=== PATIENT | male | born 1975 | race Caucasian/White ===

== ENCOUNTER 2019-09-12 18:38 | Emergency (ER) | payer OTHER, SELFPAY ==
--- NOTE | ~2019-09-12 | XR_ITS ---
EXAMINATION: XR forearm LT 2V DATE: 09/12/2019 19:06 INDICATION: Laceration of the mid left forearm from metal hardener. TECHNIQUE: AP an lateral views of the left forearm were obtained. COMPARISON: none FINDINGS: Large laceration along the volar/radial aspect of the mid to distal left forearm. There are few small radiopaque foreign bodies along the laceration. Bone alignment is normal. No fracture. Joint spaces are normal. No left elbow joint effusion. IMPRESSION: 1. A few small radiopaque foreign bodies along a deep laceration at the radial/volar aspect of the mi d to distal left forearm. No osseous abnormality. Reviewed, dictated and finalized at location A. IMPRESSION: 1. A few small radiopaque foreign bodies along a deep laceration at the radial/ volar aspect of the mid to distal left forearm. No osseous abnormality.
[2019-09-12 18:41] VITALS: BP 147/95; PULSE 102; RESP 18; TEMP 36.7; O2SAT 99
--- NOTE | 2019-09-12 18:47 | PC.NURSE ---
VERBAL ORDER BY ERP PÉREZ FOR 4MG MORPHINE AND 4MG ZOFRAN IVP STAT FOR PAIN R/T INJURY. ORDERS PLACED.
[2019-09-12] MEDS: MORPHINE SULFATE 4 MG/ML INJ IV PUSH (18:48)
[2019-09-12] MEDS: MORPHINE SULFATE 4 MG/ML INJ (18:49)
[2019-09-12] MEDS: ONDANSETRON INJ 4 MG/2 ML VIAL IV PUSH (18:49)
[2019-09-12] MEDS: ceFAZolin 2 GM/D5W 50 ML 2 GM/50 ML BAG IVPB (18:55)
[2019-09-12] MEDS: TETANUS,DIPHTHERIA,AC PERTUSSIS ADULT (0.5 ML) BOOSTRIX IM (18:56)
[2019-09-12] MEDS: LIDOCAINE HCL 1% LOCAL INJ 20 ML VIAL (19:27)
--- NOTE | 2019-09-12 20:02 | ED.GENADULT ---
HPI - General Adult General Chief complaint: Wound/Laceration <Satish Kiser PA-C - Last Filed: 09/12/19 20:14> Stated complaint: arm laceration <Satish Kiser PA-C - Last Filed: 09/12/19 20:14> Time Seen by Provider: 09/12/19 18:49 <Satish Kiser PA-C - Last Filed: 09/12/19 20:14> Source: patient <Satish Kiser PA-C - Last Filed: 09/12/19 20:14> Mode of arrival: ambulatory <Satish Kiser PA-C - Last Filed: 09/12/19 20:14> Limitations: no limitations <Satish Kiser PA-C - Last Filed: 09/12/19 20:14> History of Present Illness HPI narrative: Patient is a 43-year-old male who presents with injury to the left forearm patient was using a jewel grinder when he lacerated the arm patient presents with moderate aching pain to the distal mid forearm where he has a large laceration. Patient denies radicular symptoms or paresthesias or any loss of function. Patient is unsure as to tetanus status. Patient presents immediately after the injury. Patient was using a jewel grinder at the time of the injury as noted. Patient presents per private vehicle <Satish Kiser PA-C - Last Filed: 09/12/19 20:14> Related Data Allergies/adverse reactions: Allergies Allergy/AdvReac Type Severity Reaction Status Date / Time No Known Allergies Allergy Verified 09/12/19 18:47 <Satish Kiser PA-C - Last Filed: 09/12/19 20:14> Review of Systems Review of Systems: All systems reviewed & are unremarkable except as noted in HPI and below <Satish Kiser PA-C - Last Filed: 09/12/19 20:14> [facility] Surgical History Surgical History: Surgical History History of orthopedic surgery <Satish Kiser PA-C - Last Filed: 09/12/19 20:14> Social History Social History: Social History (Updated 09/12/19 @ 20:10 by Satish Kiser PA-C) Smoking status: Never smoker <CIERA Brownlee Last Filed: 09/12/19 20:14> Exam Narrative: Exam Narrative: GENERAL: Well-appearing, well-nourished, and in no acute distress. HEAD: Normocephalic, atraumatic. EYES: PERRLA and EOMI. ENT: Nares clear, no rhinorrhea or epistaxis. Mucous membranes moist. EXTREMITIES: Normal range of motion. No edema. SKIN: Warm, dry, no rash. 7 cm irregular deep laceration of the mid to distal left forearm dorsal surface NEURO: No focal deficits. Alert and oriented x3. Neurovascularly intact. Capillary refill less than 2 seconds. Motor and sensory intact PSYCH: Normal mood and affect. <Satish Kiser PA-C - Last Filed: 09/12/19 20:14> Course Course Emergency Course: Patient in the room in no distress aware of case findings treatment plan and diagnosis agreeing to follow-up as direct <Satish Kiser PA-C - Last Filed: 09/12/19 20:14> Vital Signs Vital signs: Vital Signs Temperature 98.0 F 09/12/19 18:41 Pulse Rate 102 H 09/12/19 18:41 Respiratory Rate 18 09/12/19 18:41 Blood Pressure 147/95 H 09/12/19 18:41 Pulse Oximetry 99 09/12/19 18:41 Temperature 98.0 F 09/12/19 18:41 Pulse Rate 104 H 09/12/19 20:24 Respiratory Rate 18 09/12/19 20:24 Blood Pressure 137/66 09/12/19 20:24 Pulse Oximetry 98 09/12/19 20:24 <Satish Kiser PA-C - Last Filed: 09/12/19 20:14> Vital Signs Temperature 98.0 F 09/12/19 18:41 Pulse Rate 102 H 09/12/19 18:41 Respiratory Rate 18 09/12/19 18:41 Blood Pressure 147/95 H 09/12/19 18:41 Pulse Oximetry 99 09/12/19 18:41 Temperature 98.0 F 09/12/19 18:41 Pulse Rate 104 H 09/12/19 20:24 Respiratory Rate 18 09/12/19 20:24 Blood Pressure 137/66 09/12/19 20:24 Pulse Oximetry 98 09/12/19 20:24 <Makeda Marin MD - Last Filed: 09/19/19 07:07> Procedures Laceration Laceration 1: Date: 09/12/19 <Satish Kiser PA-C - Last Filed: 09/12/19 20:14> Time: 20:11 <Satish Kiser PA-C - Last F
[2019-09-12 20:24] VITALS: BP 137/66; PULSE 104; RESP 18; O2SAT 98
== END 2019-09-12 20:29 | disposition home or self-care (01) ==
PROVIDERS: Emergency Provider Emergency Medicine
DX: S51.822A Laceration with foreign body of left forearm, initial encounter (principal); W29.8XXA Contact with other powered hand tools and household machinery, initial encounter; Z23 Encounter for immunization
CPT/HCPCS: 12002; 73090; 90471; 90715; 96365; 96375; 99284; J0690; J2270; J2405